=== PATIENT | male | born 1975 | race Caucasian/White ===

== ENCOUNTER → 2020-04-06 15:16 | Outpatient (CLI) | payer OTHER, SELFPAY ==
--- NOTE | ~2020-04-06 | XR_ITS ---
XR finger 3rd LT min 2V, XR finger 4th LT min 2V 04/06/2020 15:36 INDICATION: Possible fracture PROCEDURE: 4 views of the left third and fourth fingers each COMPARISON: No prior studies for comparison. FINDINGS: Fracture, dislocation or subluxation is not identified. The soft tissues appear within norm al limits. No foreign bodies are identified. IMPRESSION: 1: NO ACUTE BONE OR JOINT ABNORMALITY IDENTIFIED. Reviewed, dictated and finalized at location B. IMPRESSION: 1: NO ACUTE BONE OR JOINT ABNORMALITY IDENTIFIED.
== END ==
PROVIDERS: PCP Internal Medicine; Visit Provider Clinical Nurse Specialist
DX: M79.645 Pain in left finger(s) (principal)
CPT/HCPCS: 73140

== ENCOUNTER 2021-11-27 11:02 | Outpatient (CLI) | payer OTHER, SELFPAY ==
--- NOTE | 2021-12-02 15:53 | WPDHOLTEREM ---
Holter/Event Monitor Holter/Event Monitor Date of procedure: 11/27/21 Holter/Event Procedure: 48 Hr Holter Monitor Indications: Syncope Conclusion: 1. 48 hour holter monitor on 11/27/21. 2. Underlying rhythm is sinus rhythm with sinus arrhythmia. HR range 39-182 bpm; average HR 69 bpm. HR at 182 bpm was at 06:07. 3. There are 2 premature supraventricular complexes and 2 supraventricular couplets. No supraventricular tachycardia. 4. There are 7 premature ventricular complexes. No ventricular tachycardia. 5. No sinoatrial or atrioventricular blocks. No significant pauses greater than 2 seconds. 6. No symptoms available for correlation.
== END 2021-11-27 11:03 | disposition home or self-care (01) ==
PROVIDERS: PCP Internal Medicine; Visit Provider Clinical Nurse Specialist
DX: R55 Syncope and collapse (principal)
CPT/HCPCS: 93225; 93226

== ENCOUNTER 2021-12-12 13:26 | Outpatient (CLI) | payer OTHER, SELFPAY ==
--- NOTE | 2021-12-12 13:39 | ECHO_ITS ---
Patient Info Name: Lupillo Zhong Age: 46 years : 1975 Gender: Male Ht: 70 in Wt: 160 lbs BSA: 1.89 m2 HR: 70 bpm BP: 133 / 84 mmHg Technical Quality: Good Exam Date: 12/12/2021 2:11 PM Exam Location: [facility] Patient Status: Outpatient Admit Date: 12/12/2021 Staff Ordering Physician: Lia Miller Celery Tier: Memo Thompson RDCS, RT Attending Provider: Lia Miller Referring Physician: Paul ADAM; Exam Type: CA echo doppler w bubble study Study Info Indications R55 - Syncope and collapse Strain analysis performed. Complete two-dimensional, color flow and Doppler transthoracic echocardiogram is performed with agitated saline. Summary 1. Left ventricular chamber dimension is normal. 2. Left ventricular systolic function is normal, estimated at 55-60%. 3. The left ventricular diastolic function is normal. 4. E/e' 6 is not elevated. 5. Global longitudinal strain is abnormal at -15.5%. 6. There is mild aortic valve sclerosis. 7. There is trace mitral valve regurgitation. 8. Dilated inferior vena cava with >50% collapse upon inspiration consistent with elevated right atrial pressure, 10 mmHg. Left Ventricle E/e' 6 is not elevated. Global longitudinal strain is abnormal at -15.5%. Left ventricular chamber dimension is normal. Left ventricular systolic function is normal, estimated at 55-60%. The left ventricular diastolic function is normal. Right Ventricle Right ventricular systolic function is normal and with normal TAPSE 3.0 cm. Right ventricular chamber dimension is normal. Left Atria Left atrial chamber dimension is normal. Right Atria Right atrial chamber dimension is normal. Atrial Septum Agitated saline injection with and without valsalva maneuver opacified right cardiac chambers without shunt to left cardiac chambers. Intact interatrial septum visualized by 2D and agitated saline imaging. Aortic Valve The aortic valve is trileaflet. There is mild aortic valve sclerosis. There is no aortic valve stenosis. There is no aortic valve regurgitation. Pulmonic Valve There is no pulmonic regurgitation. Mitral Valve There is no mitral valve stenosis. There is trace mitral valve regurgitation. Tricuspid Valve There is no tricuspid valve regurgitation. Pericardium/Pleural There is no pericardial effusion. Inferior Vena Cava Dilated inferior vena cava with >50% collapse upon inspiration consistent with elevated right atrial pressure, 10 mmHg. Aorta The aortic root size at the sinus of Valsalva is normal. Left Ventricular Outflow Tract Name Value Normal LVOT 2D LVOT Diameter 2.1 cm LVOT Doppler LVOT Peak Gradient 2 mmHg LVOT Mean Gradient 1 mmHg LVOT VTI 14 cm LVOT VTI/AV VTI Ratio 0.7 LVOT Stroke Volume 49 ml LVOT CO 3.1 l/min LVOT CI 1.6 l/min/m2 Mitral Valve
== END 2021-12-12 13:27 | disposition home or self-care (01) ==
LOC: ANHCARD 13:27
PROVIDERS: PCP Internal Medicine; Visit Provider Clinical Nurse Specialist
DX: R55 Syncope and collapse (principal); I35.8 Other nonrheumatic aortic valve disorders
CPT/HCPCS: 93306; 96375